=== PATIENT | male | born 1955 | race Caucasian/White ===

== ENCOUNTER 2017-09-20 14:20 | Emergency (ER) | payer OTHER ==
[2017-09-20 17:08] VITALS: BP 168/69
--- NOTE | 2017-09-20 17:15 | UC ---
Throat Pain/Nasal Raji HPI - HPI Summary HPI Summary: C/O upper mouth pain over the past week, worse in the last 2 days. - History of Current Complaint Chief Complaint: UCGeneralIllness Stated Complaint: MOUTH COMPLAINT Time Seen by Provider: 09/20/17 17:06 Hx Obtained From: Patient Onset/Duration: Gradual Onset, Lasting Days - 6, Worse Since - the last 2 days now with coughing with the sore throat Severity: Moderate Cough: Nonproductive Associated Signs & Symptoms: Positive: Dysphagia - Allergies/Home Medications Allergies/Adverse Reactions: Allergies Allergy/AdvReac Type Severity Reaction Status Date / Time No Known Allergies Allergy Verified 09/20/17 14:52 Home Medications: Home Medications Furosemide TAB* [Lasix TAB*] 20 mg PO DAILY 09/20/17 [History Confirmed 09/20/17 ] Lisinopril TAB* [Prinivil TAB*] 10 mg PO DAILY 09/20/17 [History Confirmed 09/20] PMH/Surg Hx/FS Hx/Imm Hx Cardiovascular History: Hypertension - Surgical History Surgical History: Yes Surgery Procedure, Year, and Place: bilateral arm surgery. left knee. left ankle. tonsillectomy - Family History Known Family History: Positive: Hypertension - Social History Occupation: Employed Full-time Lives: Alone Alcohol Use: None Substance Use Type: None Smoking Status (MU): Never Smoked Tobacco Have You Smoked in the Last Year: No Review of Systems ENT: Sore Throat Respiratory: Cough Is Patient Immunocompromised?: No All Other Systems Reviewed And Are Negative: Yes Physical Exam Triage Information Reviewed: Yes Appearance: Well-Appearing, No Pain Distress, Well-Nourished Vital Signs: Initial Vital Signs Temp 98.6 F 09/20/17 14:48 Pulse 65 09/20/17 14:48 Resp 16 09/20/17 14:48 BP 164/82 09/20/17 14:48 Pulse Ox 99 09/20/17 14:48 Vital Signs Reviewed: Yes Eyes: Positive: Conjunctiva Clear ENT: Positive: Pharynx normal - with posterior pharynx lymphoid hyperplasia, TMs normal Neck exam: Normal Respiratory Exam: Normal Musculoskeletal Exam: Normal Neurological Exam: Normal Psychological Exam: Normal Skin Exam: Normal Throat Pain/Nasal Course/Dx - Differential Dx/Diagnosis Differential Diagnosis/HQI/PQRI: Peritonsillar Abscess, Pharyngitis, URI Provider Diagnoses: Acute URI Discharge - Discharge Plan Condition: Stable Disposition: HOME Patient Education Materials: Pharyngitis (ED), Upper Respiratory Infection (ED) Referrals: Aubrey Burgos DO [Primary Care Provider] -
== END 2017-09-20 17:35 | disposition home or self-care (01) ==
LOC: UCCORT 14:20
DX: J06.9 Acute upper respiratory infection, unspecified (principal); I10 Essential (primary) hypertension
CPT/HCPCS: 99212; G0463

== ENCOUNTER 2018-08-08 07:29 | Emergency (ER) | payer OTHER ==
[2018-08-08 07:46] VITALS: BP 150/80
--- NOTE | 2018-08-08 07:53 | UC ---
Throat Pain/Nasal Raji HPI - HPI Summary HPI Summary: 62 year old M with sinus pressure and ST. Sinus pressure yesterday. C/o sore throat, runny nose and sneezing x1 week. No fever. He has had worsening Sx. Now with maxillary sinus pressure in the left side that is worsening. [ End ] - History of Current Complaint Chief Complaint: UCRespiratory Stated Complaint: SINUS COMPLAINT Time Seen by Provider: 08/08/18 07:51 Hx Obtained From: Patient Onset/Duration: Gradual Onset Severity: Mild Pain Intensity: 6 Cough: Productive Associated Signs & Symptoms: Positive: Sinus Discomfort, Nasal Discharge. Negative: Fever, Vomiting - Allergies/Home Medications Allergies/Adverse Reactions: Allergies Allergy/AdvReac Type Severity Reaction Status Date / Time No Known Allergies Allergy Verified 08/08/18 07:41 PMH/Surg Hx/FS Hx/Imm Hx Previously Healthy: Yes Cardiovascular History: Hypertension - Surgical History Surgical History: Yes Surgery Procedure, Year, and Place: bilateral arm surgery. left knee. left ankle. tonsillectomy - Family History Known Family History: Positive: Hypertension - Social History Occupation: Employed Full-time Alcohol Use: None Substance Use Type: None Smoking Status (MU): Never Smoked Tobacco Have You Smoked in the Last Year: No - Immunization History Most Recent Tetanus Shot: UTD Review of Systems Constitutional: Fatigue ENT: Sore Throat, Ear Ache, Nasal Discharge, Sinus Congestion, Sinus Pain/ Tenderness Respiratory: Cough Is Patient Immunocompromised?: No All Other Systems Reviewed And Are Negative: Yes Physical Exam Triage Information Reviewed: Yes Appearance: Well-Appearing, No Pain Distress, Well-Nourished Vital Signs: Initial Vital Signs Temp 98 F 08/08/18 07:42 Pulse 67 08/08/18 07:42 Resp 16 08/08/18 07:42 BP 150/80 08/08/18 07:42 Pulse Ox 97 08/08/18 07:42 Vital Signs Reviewed: Yes Eye Exam: Normal ENT Exam: Normal ENT: Positive: Nasal congestion, Nasal drainage, TM dull, Sinus tenderness Dental Exam: Normal Neck exam: Normal Neck: Positive: 1 Respiratory Exam: Normal Cardiovascular Exam: Normal Abdominal Exam: Normal Musculoskeletal Exam: Normal Neurological Exam: Normal Psychological Exam: Normal Skin Exam: Normal Throat Pain/Nasal Course/Dx - Course Course Of Treatment: based on duration of Sx and now with maxillary sinus pain . treat at this time and aware of SE RTO if any concerns - Differential Dx/Diagnosis Differential Diagnosis/HQI/PQRI: Otitis Media, Pharyngitis, Sinusitis, Tonsillitis, URI Provider Diagnoses: Sinusitis Discharge - Sign-Out/Discharge Documenting (check all that apply): Patient Departure All imaging exams completed and their final reports reviewed: No Studies - Discharge Plan Condition: Good Disposition: HOME Prescriptions: Amoxicillin/Clavulanate TAB* [Augmentin TAB 875*] 875 mg PO BID 10 Days #20 tab Patient Education Materials: Sinusitis (ED) Referrals: Rosio Titus PA [Primary Care Provider] - 3 Days Additional Instructions: Please start Flonase daily as well. - Billing Disposition and Condition Condition: GOOD Disposition: Home
== END 2018-08-08 08:09 | disposition home or self-care (01) ==
LOC: UCCORT 07:29
DX: J32.9 Chronic sinusitis, unspecified (principal); I10 Essential (primary) hypertension
CPT/HCPCS: 99212; G0463

== ENCOUNTER 2019-08-29 07:00 | Emergency (ER) | payer OTHER ==
[2019-08-29 07:20] VITALS: BP 173/91
--- NOTE | 2019-08-29 07:38 | UC ---
Skin Complaint HPI - HPI Summary HPI Summary: 63 yo karan, presents for removal of tick from the abdominal wall. Tick mildly engorged and embedded in the left mid abdominal area. - History of Current Complaint Chief Complaint: UCSkin Time Seen by Provider: 08/29/19 07:27 Stated Complaint: TICK BITE Hx Obtained From: Patient Onset/Duration: Sudden Onset, Lasting Hours Skin Exposure Onset/Duration: Hours Ago Timing: Constant Onset Severity: Mild Current Severity: None Pain Intensity: 0 Aggravating Factor(s): Nothing Alleviating Factor(s): Nothing Associated Signs & Symptoms: Positive: Negative Related History: Insect Bite/Sting - Allergy/Home Medications Allergies/Adverse Reactions: Allergies Allergy/AdvReac Type Severity Reaction Status Date / Time No Known Allergies Allergy Verified 08/29/19 07:19 PMH/Surg Hx/FS Hx/Imm Hx Cardiovascular History: Hypertension - Surgical History Surgical History: Yes Surgery Procedure, Year, and Place: bilateral arm surgery. left ankle. tonsillectomy - Family History Known Family History: Positive: Hypertension, Non-Contributory - Social History Occupation: Employed Full-time Lives: Alone Alcohol Use: None Substance Use Type: None Smoking Status (MU): Never Smoked Tobacco Have You Smoked in the Last Year: No - Immunization History Most Recent Tetanus Shot: UTD Review of Systems All Other Systems Reviewed And Are Negative: Yes Constitutional: Positive: Negative Skin: Positive: Other - tick bite Cardiovascular: Positive: Other - missed taking blood pressure meds over the past several days, missed 08/27 and 3. Is Patient Immunocompromised?: No Physical Exam Triage Information Reviewed: Yes Appearance: Well-Appearing, No Pain Distress Vital Signs: Initial Vital Signs Temp 97.1 F 08/29/19 07:15 Pulse 61 08/29/19 07:15 Resp 18 08/29/19 07:15 BP 173/91 08/29/19 07:15 Pulse Ox 100 08/29/19 07:15 ENT: Positive: Normal ENT inspection Respiratory: Positive: Lungs clear, Normal breath sounds Cardiovascular: Positive: RRR, No Murmur Skin Exam: Other - removed mildly engorged tick from left abdominal wall, just above the umbilical area. Intact at time of removal. 2 x 1 cm area of erythema. Course/Dx - Course Course Of Treatment: Tick removed, single dose of doxycycline prophylactically sent for use - Differential Diagnoses - Skin Complaint Differential Diagnoses: Other - tick bite - Diagnoses Provider Diagnosis: Tick bite of abdominal wall Discharge ED - Sign-Out/Discharge Documenting (check all that apply): Patient Departure All imaging exams completed and their final reports reviewed: No Studies - Discharge Plan Condition: Good Disposition: HOME Prescriptions: DOXYcycline CAP(*) [DOXYcycline 100MG CAP(*)] 200 mg PO DAILY #2 cap Patient Education Materials: Tick Bite (ED) Referrals: Rosio Titus PA [Primary Care Provider] - Additional Instructions: Your blood pressure reading is elevated today to 173/91. Please ensure that you take your medications regularly, and have your blood pressure re-checked within the week. You have been given a single dose of doxycycline to prevent Lyme disease. Monitor for rash, fever and joint pains over the next weeks, although the risk of Lyme disease following the preventative antibiotic is very low. - Billing Disposition and Condition Condition: GOOD Disposition: Home
== END 2019-08-29 07:54 | disposition home or self-care (01) ==
LOC: UCCORT 07:00
DX: S30.861A Insect bite (nonvenomous) of abdominal wall, initial encounter (principal); I10 Essential (primary) hypertension; Z82.49 Family history of ischemic heart disease and other diseases of the circulatory system; W57.XXXA Bitten or stung by nonvenomous insect and other nonvenomous arthropods, initial encounter; Y92.9 Unspecified place or not applicable
CPT/HCPCS: 99212; G0463